=== PATIENT | female | born 1985 | race Caucasian/White ===

== ENCOUNTER 2017-08-15 00:05 | Inpatient (IN) | payer OTHER ==
[~2017-08-15] VITALS: Ht 167.6 cm; Wt 98.0 kg
--- NOTE | 2017-08-15 10:08 | PR ---
[facility] [address] [facility] [place], [place] [address] Signed Progress Notes IP Datetime Report Generated by CPN: 08/15/2017 10:08 PROGRESS NOTES: [id number] Impression: Normal progression of labor Plan: Continue present management; Anticipate Vaginal Delivery VITAL SIGNS: [id number] Vital Signs: Reviewed; Within Normal Limits EXAM: [id number] Dilatation: 4.0 Effacement: 50 Station: -3 Uterine Contractions: every 3-4 minutes MEMBRANES: [id number] Membrane Status: Intact Comments: Just received Epidural, now comfortable. Continue monitoring. Fetus A: [id number] FHR Baseline: 125 Variability: Moderate 6-25bpm Accelerations: 15X15 Presentation: Vertex Fetus B: [id number] Signing Physician: Catia Jacob MD Copies: ~ *Electronically Signed* 08/15/17 1008 CATIA JACOB MD PATIENT NAME: LUIS DUFFY PROGRESS NOTE DATE OF : 89 PHYSICIAN: CATIA JACOB MD RPT #: [id number] REPORT IS CONFIDENTIAL AND NOT TO BE RELEASED WITHOUT AUTHORIZATION
--- NOTE | 2017-08-15 12:41 | PR ---
[facility] [address] [facility] [place], [place] [address] Signed Progress Notes IP Datetime Report Generated by CPN: 08/15/2017 12:41 PROGRESS NOTES: [id number] Impression: Normal progression of labor Procedures: Artificial ROM; Scalp Electrode Plan: Continue present management VITAL SIGNS: [id number] Vital Signs: Reviewed; Within Normal Limits EXAM: [id number] Dilatation: 5.0 Effacement: 50 Station: -2 Uterine Contractions: every 3-4 hours MEMBRANES: [id number] Membrane Status: Ruptured Amniotic Fluid Color: Bloody ROM Note: AROM with few blodo clots and blood tinged fluid Comments: Some bloody fluid, but good FHR, except variable decel after AROm. O2, left side, scalp electrode WIll watch closely Fetus A: [id number] FHR Baseline: 120 Variability: Moderate 6-25bpm Accelerations: 15X15 Decelerations: Variable Presentation: Vertex Fetus B: [id number] Signing Physician: Catia Jacob MD Copies: ~ *Electronically Signed* 08/15/17 1241 CATIA JACOB MD PATIENT NAME: LUIS DUFFY PROGRESS NOTE DATE OF : 89 PHYSICIAN: CATIA JACOB MD RPT #: [id number] REPORT IS CONFIDENTIAL AND NOT TO BE RELEASED WITHOUT AUTHORIZATION
--- NOTE | 2017-08-16 07:52 | PR ---
[facility] [address] [facility] [place] [address] Signed PP Progress Notes Datetime Report Generated by CPN: 08/16/2017 07:52 SUBJECTIVE: [id number] Pain: Within normal limits Nausea/Vomiting: Denies Vital Signs: [id number] Vital Signs: Reviewed; Within Normal Limits Notable Details: PP HGb/Hct = 11.3/33.5 EXAM: [id number] Abdomen/Uterus: Normal Lochia: Normal Extremities: Normal IMPRESSION/PLAN/PROCEDURES: [id number] Impression: Normal progression Plan: Discharge Procedures: None Progress Notes: Doing well, wants to go home Signing Physician: Catia Jacob MD Copies: ~ *Electronically Signed* 08/16/17 0752 CATIA JACOB MD PATIENT NAME: LUIS DUFFY PROGRESS NOTE DATE OF : 89 PHYSICIAN: CATIA JACOB MD RPT #: [id number] REPORT IS CONFIDENTIAL AND NOT TO BE RELEASED WITHOUT AUTHORIZATION
== END 2017-08-16 16:25 | disposition home or self-care (01) | DRG 775 ==
LOC: FBC 00:05
PROVIDERS: ADMIT General Practice
PROC: 10E0XZZ Delivery of Products of Conception, External Approach (ICD-10-PCS; principal; 2017-08-15)
PROC: 10907ZC Drainage of Amniotic Fluid, Therapeutic from Products of Conception, Via Natural or Artificial Opening (ICD-10-PCS; 2017-08-15)
DX: O43.893 Other placental disorders, third trimester (principal); Z3A.39 39 weeks gestation of pregnancy; Z37.0 Single live birth
CPT/HCPCS: 01960; 36415; 85027; J2550; J3010; J7120